=== PATIENT | female | born 1990 | race Caucasian/White ===

== ENCOUNTER 2016-10-06 17:53 | Emergency (ER) | payer OTHER ==
[2016-10-06 17:56] VITALS: BP 127/78; PULSE 69; TEMP 98; BMI 33.3
== END 2016-10-06 19:19 | disposition left against medical advice (07) ==
LOC: JER 17:53
DX: Z53.21 Procedure and treatment not carried out due to patient leaving prior to being seen by health care provider (principal)
CPT/HCPCS: 99281-25

== ENCOUNTER 2017-01-07 08:11 | Inpatient (IN) | payer OTHER ==
--- NOTE | 2017-01-07 13:07 | HP ---
Admission [facility] Chief Complaint: REHAB TX FOR PCP DEPENDENCE Allergies/Adverse Reactions: Allergies Allergy/AdvReac Type Severity Reaction Status Date / Time No Known Drug Allergies Allergy Verified 01/07/17 11:34 shellfish derived Allergy Itching Verified 01/07/17 11:34 History of Present Illness: 26 Y/O H/FEMALE WITH A HX OF PCP DEPENENCE SEEKING REHAB TX. PT IS CURRENTLY IN [facility] OPD Exam Limitations: No Limitations - Ebola screening Have you traveled outside of the country in the last 21 days: No Have you had contact with anyone from an Ebola affected area: No - Review of Systems Constitutional: No Symptoms Reported EENT: reports: Dental Problems (MISSING TEETH) Respiratory: reports: Shortness of Breath (HX ASTHMA), Wheezing Cardiac: reports: No Symptoms Reported GI: reports: Poor Fluid Intake : reports: No Symptoms Reported Musculoskeletal: reports: No Symptoms Reported Integumentary: reports: Rash (HX ECZEMA ON/OFF BUT CLEARED AT THE MOMENT PER PT) Neuro: reports: No Symptoms reported Endocrine: reports: No Symptoms Reported Hematology: reports: No Symptoms Reported Psychiatric: reports: Orientated x3, Anxious Other Systems: Reviewed and Negative Patient History - Patient Medical History Hx Anemia: No Hx Asthma: Yes (ON ALBUTEROL) Hx Chronic Obstructive Pulmonary Disease (COPD): No Hx Cancer: No Hx Cardiac Disorders: No Hx Congestive Heart Failure: No Hx Hypertension: No Hx Hypercholesterolemia: No Hx Pacemaker: No HX Cerebrovascular Accident: No Hx Seizures: No Hx Dementia: No Hx Diabetes: No Hx Gastrointestinal Disorders: No Hx Liver Disease: No Hx Genitourinary Disorders: No Hx Sexually Transmitted Disorders: Yes (GONORRHEA; GENITAL HERPES) Hx Renal Disease (ESRD): No Hx Thyroid Disease: No Hx Human Immunodeficiency Virus (HIV): No (NEGATIVE HX) Hx Hepatitis C: No Hx Depression: Yes (ON MEDS) Hx Suicide Attempt: Yes (CUT WRIST;OD ON PSYCH MEDS-LAST WEEK. DENIES CURRENT IDEATIONS.) Hx Bipolar Disorder: Yes Hx Schizophrenia: No - Patient Surgical History Past Surgical History: Yes Hx Neurologic Surgery: No Hx Cataract Extraction: No Hx Cardiac Surgery: No Hx Lung Surgery: No Hx Breast Surgery: No Hx Breast Biopsy: No Hx Abdominal Surgery: No Hx Appendectomy: No Hx Cholecystectomy: No Hx Genitourinary Surgery: No Hx Section: Yes (X 1 IN 2009) Hx Orthopedic Surgery: No Hx Hysterectomy: No Anesthesia Reaction: No - PPD History Previous Implant?: Yes Documented Results: Negative w/proof Date: 05/01/16 PPD to be Administered?: No - Reproductive History Patient is a Female of Child Bearing Age (11 -55 yrs old): Yes Last Menstrual Period: 05/01/16 Patient : No - Smoking Cessation Smoking history: Current every day smoker Have you smoked in the past 12 months: Yes Aproximately how many cigarettes per day: 20 Hx Chewing Tobacco Use: No Initiated information on smoking cessation: Yes 'Breaking Loose' booklet given: 01/07/17 - Substance & Tx. History Hx Alcohol Use: No (DENIES) Hx Substance Use: Yes (PCP) Hx Substance Use Treatment: Yes ([facility]) - Substances Abused PCP Route: Smoking Frequency: Daily Amount used: 3 BAGS Age of first use: 14 Date of Last Use: 01/06/17 Family Disease History - Family Disease History Family Disease History: Heart Disease: Mother (COPD), CA: Mother, Respiratory: Mother, Other: Grandparent (GM-LEG AMPUTATION) Admission Physical Exam S - Physical General Appearance: Yes: No Apparent Distress, Irritable, Anxious HEENTM: Yes: EOMI, Normocephalic, JAMILA, Pharynx Normal Respiratory: Yes: Chest Non-Tender, Lungs Clear, Normal Breath Sounds, No Respiratory Distress Breast: Yes: Breast Exam Deferred Cardiology: Yes: Regular Rhythm, Regular Rate, S1, S2 Abdominal: Yes: Normal Bowel Sounds, Non Tender, Soft Genitourinary: Yes: Other (N/C) Back: Yes: Within Normal Limits Musculoskeletal: Yes: full range of Motion, Gait Steady Extremities: Yes: Normal Range of Motion, Non-Tender Neurological: Yes: optical element coater II-XII NML intact, Fully Oriented, Alert, Motor Strength 5/5 Integumentary: Yes: Dry, Warm Lymphatic: Yes: Within Normal Limits - Diagnostic (1) Asthma Current Visit: Yes Status: Chronic Qualifiers: Asthma severity: mild intermittent Asthma complication type: with status asthmaticus Qualified Code(s): J45.22 - Mild intermittent asthma with status asthmaticus (2) Cannabis dependence Current Visit: No Status: Inactive (3) Herpes simplex type II infection Current Visit: Yes Status: Inactive (4) Nicotine dependence Current Visit: Yes Status: Acute Qualifiers: Nicotine product type: cigarettes Substance use status: in withdrawal Qualified Code(s): F17.213 - Nicotine dependence, cigarettes, with withdrawal (5) PCP dependence Current Visit: Yes Status: Acute Cleared for Admission [facility] - Detox or Rehab Claeared for Rehab Admission: Yes [facility] Breath Alcohol Content Breath Alcohol Content: 0
[2017-01-07] MEDS ORDERED: MAG HYDROX/AL HYDROX/SIMETH 30 ML UNIT-DOSE CUP PO PRN (13:33)
[2017-01-07] MEDS ORDERED: hydrOXYzine PAMOATE 25 MG CAPSULE (FP) PO PRN (13:33)
[2017-01-07] MEDS ORDERED: P-EPHED 60MG/TRIPROLIDI 2.5MG TABLET PO PRN (13:33)
[2017-01-07] MEDS ORDERED: MENTHOL/PHENOL 1 EACH UD MM PRN (13:33)
[2017-01-07] MEDS ORDERED: guaiFENesin/D-METHORPHAN HB 10 ML UNIT-DOSE CUPS PO PRN (13:33)
[2017-01-07] MEDS ORDERED: MAGNESIUM CITRATE 300 ML BOTTLE PO PRN (13:33)
[2017-01-07] MEDS ORDERED: LOPERAMIDE HCL 2 MG CAPSULE PO PRN (13:33)
[2017-01-07] MEDS ORDERED: diphenhydrAMINE HCL 50 MG CAPSULE PO PRN (13:33)
[2017-01-07] MEDS ORDERED: ACETAMINOPHEN 325 MG TABLET (FP) PO PRN (13:33)
[2017-01-07] MEDS ORDERED: MAGNESIUM HYDROX 2400MG/30ML ORAL SUSPENSION 30 ML CUP PO PRN (13:33)
[2017-01-07] MEDS ORDERED: IBUPROFEN 400 MG TABLET (FP) PO PRN (13:33)
[2017-01-07] MEDS ORDERED: COLLOIDAL OATMEAL 1 BAR EACH TP PRN (13:35)
[2017-01-07] MEDS: NICOTINE 21 MG/24 HOURS TOPICAL PATCH TD SCH (15:11)
[2017-01-07] MEDS: NICOTINE POLACRILEX 4 MG GUM BUC PRN (15:11)
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
[2017-01-07 18:00] LABS: MCH 29.1 pg (25.7-33.7); MCHC 32.4 g/dl (32.0-36.0); MEAN CELL VOLUME 89.8 fl (80-96); MEAN PLT VOLUME 10.3 fl (7.5-11.1); PLATELET COUNT 176 K/MM3 (134-434); RDW 14.1 % (11.6-15.6); WHITE BLOOD COUNT 10.1 K/mm3 (4.0-10.0)
[2017-01-07 18:10] LABS: URINE APPEARANCE CLEAR; URINE BILIRUBIN NEGATIVE (NEGATIVE); URINE BLOOD NEGATIVE (NEGATIVE); URINE COLOR YELLOW; URINE GLUCOSE (UA) NEGATIVE (NEGATIVE); URINE KETONE TRACE (NEGATIVE); URINE LEUK ESTERASE NEGATIVE (NEGATIVE); URINE NITRITE NEGATIVE (NEGATIVE); URINE PROTEIN NEGATIVE (NEGATIVE); URINE UROBILINOGEN NEGATIVE E.U./dl (0.2-1.0)
[2017-01-07 18:14] LABS: CALCIUM 8.9 mg/dL (8.5-10.1)
[2017-01-07 18:19] LABS: ALBUMIN 3.8 g/dl (3.4-5.0); ALK PHOS 81 U/L (45-117); ANION GAP 10 (8-16); BILIRUBIN,TOTAL 0.2 mg/dL (0.2-1.0); CO2 29 mmol/L (21-32); COCKROFT - GAULT 147.3645; CREATININE 0.7 mg/dL (0.55-1.02); GLUCOSE,RANDOM 103 mg/dL (74-106); SGOT/AST 10 U/L (15-37); SGPT/ALT 17 U/L (12-78); TOT PROT 6.7 g/dl (6.4-8.2)
[2017-01-07 20:41] LABS: SICKLE CELL SCREEN NEGATIVE (NEGATIVE)
[2017-01-07] MEDS: traZODone HCL 100 MG TABLET (FP) PO SCH (21:28)
[2017-01-07] MEDS: OLANZapine 10 MG TABLET PO SCH (21:28)
[2017-01-07] MEDS: THIAMINE HCL 100 MG TABLET (FP) PO SCH (21:28)
[2017-01-07] MEDS: hydrOXYzine PAMOATE 50 MG CAPSULE (FP) PO SCH (21:28)
[2017-01-07] MEDS: OXcarbazepine 300 MG TABLET (UD) PO SCH (21:28)
[2017-01-08] MEDS: hydrOXYzine PAMOATE 50 MG CAPSULE (FP) PO SCH ×3 (06:28→21:24)
[2017-01-08] MEDS: PRENATAL VITAMINS W/ FOLIC ACID TABLET (FP) PO SCH (10:31)
[2017-01-08] MEDS: OXcarbazepine 300 MG TABLET (UD) PO SCH ×2 (10:31→21:24)
[2017-01-08] MEDS: NICOTINE POLACRILEX 4 MG GUM BUC PRN (10:32)
[2017-01-08] MEDS: NICOTINE 21 MG/24 HOURS TOPICAL PATCH TD SCH (10:32)
--- NOTE | 2017-01-08 13:36 | EKG ---
Test Reason : Blood Pressure : / mmHG Vent. Rate : 070 BPM Atrial Rate : 070 BPM P-R Int : 154 ms QRS Dur : 086 ms QT Int : 404 ms P-R-T Axes : 052 088 080 degrees QTc Int : 436 ms NORMAL SINUS RHYTHM NONSPECIFIC T WAVE ABNORMALITY ABNORMAL ECG WHEN COMPARED WITH ECG OF 25-JUL-2015 20:18, NONSPECIFIC T WAVE ABNORMALITY NOW EVIDENT IN ANTEROLATERAL LEADS Confirmed by BARBARA MOLINA, TERESE ([id number]) on 01/08/2017 1:36:14 PM Referred By: Nivia Berry Confirmed By:TERESE JIMENEZ MD
[2017-01-08] MEDS: COLLOIDAL OATMEAL 1 BAR EACH TP PRN (15:57)
[2017-01-08] MEDS ORDERED: PT OWN MED DRAWER 7, Y5N ONE (19:33)
[2017-01-08] MEDS: traZODone HCL 100 MG TABLET (FP) PO SCH (21:24)
[2017-01-08] MEDS: OLANZapine 10 MG TABLET PO SCH (21:24)
[2017-01-08] MEDS: THIAMINE HCL 100 MG TABLET (FP) PO SCH (21:24)
[2017-01-09] MEDS: hydrOXYzine PAMOATE 50 MG CAPSULE (FP) PO SCH ×3 (06:10→21:28)
[2017-01-09] MEDS ORDERED: PT OWN MED DRAWER 7, Y5N ONE (08:56)
[2017-01-09] MEDS: PRENATAL VITAMINS W/ FOLIC ACID TABLET (FP) PO SCH (10:13)
[2017-01-09] MEDS: NICOTINE 21 MG/24 HOURS TOPICAL PATCH TD SCH (10:13)
[2017-01-09] MEDS: OXcarbazepine 300 MG TABLET (UD) PO SCH ×2 (10:13→21:28)
[2017-01-09] MEDS: NICOTINE POLACRILEX 4 MG GUM BUC PRN (10:15)
[2017-01-09] MEDS: THIAMINE HCL 100 MG TABLET (FP) PO SCH (21:28)
[2017-01-09] MEDS: OLANZapine 10 MG TABLET PO SCH (21:28)
[2017-01-09] MEDS: traZODone HCL 100 MG TABLET (FP) PO SCH (21:28)
[2017-01-10] MEDS: hydrOXYzine PAMOATE 50 MG CAPSULE (FP) PO SCH ×3 (06:25→21:26)
[2017-01-10] MEDS: NICOTINE 21 MG/24 HOURS TOPICAL PATCH TD SCH (10:03)
[2017-01-10] MEDS: OXcarbazepine 300 MG TABLET (UD) PO SCH ×2 (10:03→21:26)
[2017-01-10] MEDS: PRENATAL VITAMINS W/ FOLIC ACID TABLET (FP) PO SCH (10:03)
[2017-01-10] MEDS: NICOTINE POLACRILEX 4 MG GUM BUC PRN (10:04)
[2017-01-10] MEDS: THIAMINE HCL 100 MG TABLET (FP) PO SCH (21:26)
[2017-01-10] MEDS: OLANZapine 10 MG TABLET PO SCH (21:26)
[2017-01-10] MEDS: traZODone HCL 100 MG TABLET (FP) PO SCH (21:26)
[2017-01-11] MEDS: hydrOXYzine PAMOATE 50 MG CAPSULE (FP) PO SCH ×3 (06:12→21:27)
[2017-01-11] MEDS: NICOTINE POLACRILEX 4 MG GUM BUC PRN (10:08)
[2017-01-11] MEDS: PRENATAL VITAMINS W/ FOLIC ACID TABLET (FP) PO SCH (10:08)
[2017-01-11] MEDS: NICOTINE 21 MG/24 HOURS TOPICAL PATCH TD SCH (10:08)
[2017-01-11] MEDS: OXcarbazepine 300 MG TABLET (UD) PO SCH ×2 (10:08→21:29)
[2017-01-11] MEDS: traZODone HCL 100 MG TABLET (FP) PO SCH (21:27)
[2017-01-11] MEDS: THIAMINE HCL 100 MG TABLET (FP) PO SCH (21:28)
[2017-01-11] MEDS: OLANZapine 10 MG TABLET PO SCH (21:29)
[2017-01-12] MEDS: hydrOXYzine PAMOATE 50 MG CAPSULE (FP) PO SCH (06:11)
[2017-01-12] MEDS: NICOTINE 21 MG/24 HOURS TOPICAL PATCH TD SCH (10:12)
[2017-01-12] MEDS: PRENATAL VITAMINS W/ FOLIC ACID TABLET (FP) PO SCH (10:12)
[2017-01-12] MEDS: OXcarbazepine 300 MG TABLET (UD) PO SCH ×2 (10:12→21:16)
--- NOTE | 2017-01-12 15:41 | PN ---
S Progress Note Note: Pt. had bacterial vaginosis,but did not complete flagyl. Pt. is c/o vaginal d/c with a fishy odor. P : Flagyl 500mg po bid x 7 days
[2017-01-12] MEDS: HYDROCORTISONE 1% TOPICAL CREAM 30 GM TUBE TP SCH ×2 (18:20→21:19)
[2017-01-12] MEDS: OLANZapine 10 MG TABLET PO SCH (21:16)
[2017-01-12] MEDS: traZODone HCL 100 MG TABLET (FP) PO SCH (21:16)
[2017-01-12] MEDS: THIAMINE HCL 100 MG TABLET (FP) PO SCH (21:16)
[2017-01-12] MEDS: metroNIDAZOLE 250 MG TABLET PO SCH (21:18)
[2017-01-12] MEDS: hydrOXYzine PAMOATE 50 MG CAPSULE (FP) PO PRN (21:18)
[2017-01-13] MEDS ORDERED: PT OWN MED DRAWER 7, Y5N ONE (08:30)
[2017-01-13] MEDS: OXcarbazepine 300 MG TABLET (UD) PO SCH ×2 (09:55→21:23)
[2017-01-13] MEDS: PRENATAL VITAMINS W/ FOLIC ACID TABLET (FP) PO SCH (09:55)
[2017-01-13] MEDS: HYDROCORTISONE 1% TOPICAL CREAM 30 GM TUBE TP SCH ×2 (09:55→13:09)
[2017-01-13] MEDS: metroNIDAZOLE 250 MG TABLET PO SCH ×2 (09:55→21:23)
[2017-01-13] MEDS: NICOTINE 21 MG/24 HOURS TOPICAL PATCH TD SCH (09:56)
[2017-01-13] MEDS: THIAMINE HCL 100 MG TABLET (FP) PO SCH (21:23)
[2017-01-13] MEDS: OLANZapine 10 MG TABLET PO SCH (21:23)
[2017-01-13] MEDS: traZODone HCL 100 MG TABLET (FP) PO SCH (21:24)
[2017-01-13] MEDS: hydrOXYzine PAMOATE 50 MG CAPSULE (FP) PO PRN (21:27)
[2017-01-14] MEDS: metroNIDAZOLE 250 MG TABLET PO SCH ×2 (10:04→21:18)
[2017-01-14] MEDS: PRENATAL VITAMINS W/ FOLIC ACID TABLET (FP) PO SCH (10:04)
[2017-01-14] MEDS: OXcarbazepine 300 MG TABLET (UD) PO SCH ×2 (10:04→21:18)
[2017-01-14] MEDS: NICOTINE 21 MG/24 HOURS TOPICAL PATCH TD SCH (10:05)
[2017-01-14] MEDS: OLANZapine 10 MG TABLET PO SCH (21:18)
[2017-01-14] MEDS: traZODone HCL 100 MG TABLET (FP) PO SCH (21:18)
[2017-01-14] MEDS: hydrOXYzine PAMOATE 50 MG CAPSULE (FP) PO PRN (21:18)
[2017-01-14] MEDS: THIAMINE HCL 100 MG TABLET (FP) PO SCH (21:45)
[2017-01-15] MEDS: OXcarbazepine 300 MG TABLET (UD) PO SCH ×2 (09:53→21:24)
[2017-01-15] MEDS: metroNIDAZOLE 250 MG TABLET PO SCH ×2 (09:53→21:24)
[2017-01-15] MEDS: NICOTINE 21 MG/24 HOURS TOPICAL PATCH TD SCH (09:53)
[2017-01-15] MEDS: PRENATAL VITAMINS W/ FOLIC ACID TABLET (FP) PO SCH (09:53)
[2017-01-15] MEDS: NICOTINE POLACRILEX 4 MG GUM BUC PRN (09:55)
[2017-01-15] MEDS: COLLOIDAL OATMEAL 1 BAR EACH TP PRN (12:52)
[2017-01-15] MEDS: OLANZapine 10 MG TABLET PO SCH (21:24)
[2017-01-15] MEDS: THIAMINE HCL 100 MG TABLET (FP) PO SCH (21:24)
[2017-01-15] MEDS: traZODone HCL 100 MG TABLET (FP) PO SCH (21:24)
[2017-01-15] MEDS: hydrOXYzine PAMOATE 50 MG CAPSULE (FP) PO PRN (21:26)
[2017-01-16] MEDS: OXcarbazepine 300 MG TABLET (UD) PO SCH ×2 (09:56→21:24)
[2017-01-16] MEDS: PRENATAL VITAMINS W/ FOLIC ACID TABLET (FP) PO SCH (09:56)
[2017-01-16] MEDS: metroNIDAZOLE 250 MG TABLET PO SCH ×2 (09:56→21:24)
[2017-01-16] MEDS: NICOTINE 21 MG/24 HOURS TOPICAL PATCH TD SCH (09:57)
[2017-01-16] MEDS: NICOTINE POLACRILEX 4 MG GUM BUC PRN (09:57)
[2017-01-16] MEDS: HYDROCORTISONE 1% TOPICAL CREAM 30 GM TUBE TP PRN (09:59)
[2017-01-16] MEDS ORDERED: PT OWN MED DRAWER 7, Y5N ONE (10:00)
[2017-01-16] MEDS: hydrOXYzine PAMOATE 50 MG CAPSULE (FP) PO PRN (21:23)
[2017-01-16] MEDS: traZODone HCL 100 MG TABLET (FP) PO SCH (21:23)
[2017-01-16] MEDS: OLANZapine 10 MG TABLET PO SCH (21:24)
[2017-01-16] MEDS: THIAMINE HCL 100 MG TABLET (FP) PO SCH (21:24)
[2017-01-17] MEDS: metroNIDAZOLE 250 MG TABLET PO SCH ×2 (09:47→21:08)
[2017-01-17] MEDS: OXcarbazepine 300 MG TABLET (UD) PO SCH ×2 (09:48→21:08)
[2017-01-17] MEDS: NICOTINE 21 MG/24 HOURS TOPICAL PATCH TD SCH (09:48)
[2017-01-17] MEDS: PRENATAL VITAMINS W/ FOLIC ACID TABLET (FP) PO SCH (09:48)
[2017-01-17] MEDS: NICOTINE POLACRILEX 4 MG GUM BUC PRN (09:49)
[2017-01-17] MEDS: OLANZapine 10 MG TABLET PO SCH (21:08)
[2017-01-17] MEDS: THIAMINE HCL 100 MG TABLET (FP) PO SCH (21:08)
[2017-01-17] MEDS: hydrOXYzine PAMOATE 50 MG CAPSULE (FP) PO PRN (21:08)
[2017-01-17] MEDS: traZODone HCL 100 MG TABLET (FP) PO SCH (21:08)
[2017-01-18] MEDS: metroNIDAZOLE 250 MG TABLET PO SCH ×2 (09:58→21:15)
[2017-01-18] MEDS: PRENATAL VITAMINS W/ FOLIC ACID TABLET (FP) PO SCH (09:59)
[2017-01-18] MEDS: OXcarbazepine 300 MG TABLET (UD) PO SCH ×2 (09:59→21:15)
[2017-01-18] MEDS: NICOTINE POLACRILEX 4 MG GUM BUC PRN ×2 (09:59→17:44)
[2017-01-18] MEDS: NICOTINE 21 MG/24 HOURS TOPICAL PATCH TD SCH (09:59)
[2017-01-18] MEDS ORDERED: traZODone HCL 50 MG TABLET (FP) ONE (20:46)
[2017-01-18] MEDS: OLANZapine 10 MG TABLET PO SCH (21:15)
[2017-01-18] MEDS: hydrOXYzine PAMOATE 50 MG CAPSULE (FP) PO PRN (21:15)
[2017-01-18] MEDS: THIAMINE HCL 100 MG TABLET (FP) PO SCH (21:16)
[2017-01-18] MEDS: traZODone HCL 100 MG TABLET (FP) PO SCH (21:17)
[2017-01-18] MEDS ORDERED: PT OWN MED DRAWER 7, Y5N ONE (21:18)
[2017-01-18] MEDS: HYDROCORTISONE 1% TOPICAL CREAM 30 GM TUBE TP PRN (21:19)
[2017-01-19] MEDS: OXcarbazepine 300 MG TABLET (UD) PO SCH ×2 (10:04→21:14)
[2017-01-19] MEDS: PRENATAL VITAMINS W/ FOLIC ACID TABLET (FP) PO SCH (10:04)
[2017-01-19] MEDS: metroNIDAZOLE 250 MG TABLET PO SCH ×2 (10:04→21:14)
[2017-01-19] MEDS: NICOTINE POLACRILEX 4 MG GUM BUC PRN ×3 (10:06→18:07)
[2017-01-19] MEDS: NICOTINE 21 MG/24 HOURS TOPICAL PATCH TD SCH (10:06)
[2017-01-19] MEDS: traZODone HCL 100 MG TABLET (FP) PO SCH (21:14)
[2017-01-19] MEDS: OLANZapine 10 MG TABLET PO SCH (21:14)
[2017-01-19] MEDS: hydrOXYzine PAMOATE 50 MG CAPSULE (FP) PO PRN (21:14)
[2017-01-19] MEDS: THIAMINE HCL 100 MG TABLET (FP) PO SCH (21:14)
[2017-01-19] MEDS ORDERED: PT OWN MED DRAWER 7, Y5N ONE (21:16)
[2017-01-20] MEDS: OXcarbazepine 300 MG TABLET (UD) PO SCH ×2 (10:03→21:34)
[2017-01-20] MEDS: NICOTINE POLACRILEX 4 MG GUM BUC PRN (10:03)
[2017-01-20] MEDS: PRENATAL VITAMINS W/ FOLIC ACID TABLET (FP) PO SCH (10:03)
[2017-01-20] MEDS: NICOTINE 21 MG/24 HOURS TOPICAL PATCH TD SCH (10:03)
[2017-01-20] MEDS: THIAMINE HCL 100 MG TABLET (FP) PO SCH (21:34)
[2017-01-20] MEDS: traZODone HCL 100 MG TABLET (FP) PO SCH (21:34)
[2017-01-20] MEDS: OLANZapine 10 MG TABLET PO SCH (21:34)
[2017-01-20] MEDS: hydrOXYzine PAMOATE 50 MG CAPSULE (FP) PO PRN (21:34)
[2017-01-21 07:23] VITALS: BP 108/70; PULSE 67; TEMP 97.9
--- NOTE | 2017-01-21 09:00 | PN ---
Psychiatric Progress Note Vital Signs: Vital Signs Period Temp Pulse Resp BP Sys/Navarro Pulse Ox Last 24 Hr 97.9 F 67 18-18 108/70 Date of Session: 01/21/17 Chief Complaint:: Discharge visit HPI: Patient addressed PCP dependence comorbid with Bipolar disorder,Bordeline personality. ROS: Significant for PCP,Exsema,BA,HErpez simplex. Current Medications: Active Medications Generic Name Dose Route Start Last Admin Trade Name Freq PRN Reason Stop Dose Admin Acetaminophen 650 mg 01/07/17 13:33 01/20/17 13:39 Tylenol - PO 650 mg Q4H PRN Administration PAIN Al Hydroxide/Mg Hydroxide 30 ml 01/07/17 13:33 Mylanta Oral Suspension - PO Q6H PRN DYSPEPSIA Colloidal Oatmeal 1 applic 01/08/17 14:23 01/15/17 12:52 Aveeno Soap - TP 1 applic DAILY PRN Administration HYGEINE Diphenhydramine HCl 50 mg 01/07/17 13:33 Benadryl - PO HSMR1 PRN INSOMNIA Eucalyptus/Menthol/Phenol/Sorbitol 1 each 01/07/17 13:33 Cepastat Lozenge - MM Q4H PRN SORE THROAT Guaifenesin 10 ml 01/07/17 13:33 Robitussin Dm - PO Q6H PRN COUGH Hydrocortisone 1 applic 01/13/17 14:49 01/18/17 21:19 Hytone 1% Cream - TP 1 applic QID PRN Administration FOR ITCHING Hydroxyzine Pamoate 50 mg 01/12/17 10:17 01/20/17 21:34 Vistaril - PO 50 mg Q6H PRN Administration ANXIETY Ibuprofen 400 mg 01/07/17 13:33 Motrin - PO Q6H PRN SEVERE PAIN Loperamide HCl 4 mg 01/07/17 13:33 Imodium - PO Q6H PRN DIARRHEA Magnesium Citrate 300 ml 01/07/17 13:33 Citroma - PO Q48H PRN CONSTIPATION Magnesium Hydroxide 30 ml 01/07/17 13:33 Milk Of Magnesia - PO DAILY PRN CONSTIPATION Nicotine 21 mg 01/07/17 14:27 01/20/17 10:03 Nicoderm Patch - TD Not Given DAILY ANGELITO Nicotine Polacrilex 4 mg 01/07/17 13:33 01/20/17 10:03 Nicorette Gum - BUC 4 mg Q2H PRN Administration NICOTINE REPLACEMENT RX Olanzapine 20 mg 01/07/17 22:00 01/20/17 21:34 Zyprexa - PO 20 mg HS ANGELITO Administration Oxcarbazepine 300 mg 01/07/17 22:00 01/20/17 21:34 Trileptal - PO 300 mg BID ANGELITO Administration Multivit/Folic Acid/Iron 1 tab 01/08/17 10:00 01/20/17 10:03 Vitamins (Sjr) - PO 1 tab DAILY ANGELITO Administration Pseudoephedrine/Triprolidine 1 combo 01/07/17 13:33 Actifed - PO TID PRN NASAL CONGESTION Thiamine HCl 100 mg 01/07/17 22:00 01/20/17 21:34 Vitamin B1 - PO 100 mg HS ANGELITO Administration Trazodone HCl 100 mg 01/07/17 22:00 01/20/17 21:34 Desyrel - PO 100 mg HS ANGELITO Administration Current Side Effect: No Lab tests ordered: No Lab tests reviewed: Yes Provider note:: Patient completed this program today.She has met her treatment goals and will continue to address her issues on outpatient basis at [facility].Patient continues to find that current medications help to reduce her anxiety,mood instability and sleeping difficulties.She will continue to take her medications as per plan,30 days supply provided. Relapse prevention has been discussed with the patient including support system,coping skills utilization to maintain recovery. Patient is stable for discharge today. Mental Status Exam - Mental Status Exam Alert and Oriented to: Time, Place, Person Cognitive Function: Grossly Intact Patient Appearance: Well Groomed Mood: Hopeful, Euthymic Affect: Mood Congruent Patient Behavior: Cooperative Speech Pattern: Clear Voice Loudness: Normal Thought Process: Goal Oriented Thought Disorder: Being Controlled Hallucinations: Denies Suicidal Ideation: Denies Homicidal Ideation: Denies Insight/Judgement: Fair Sleep: Fair Appetite: Good Muscle strength/Tone: Normal Gait/Station: Normal Psychiatric Treatment Plan - Problem List (1) Nicotine dependence Qualifiers: Nicotine product type: cigarettes Substance use status: in withdrawal Qualified Code(s): F17.213 - Nicotine dependence, cigarettes, with withdrawal (3) Asthma Qualifiers: Asthma severity: mild intermittent Asthma complication type: with status asthmaticus Qualified Code(s): J45.22 - Mild intermittent asthma with status asthmaticus
[2017-01-21] MEDS: OXcarbazepine 300 MG TABLET (UD) PO SCH (09:03)
[2017-01-21] MEDS: PRENATAL VITAMINS W/ FOLIC ACID TABLET (FP) PO SCH (09:03)
[2017-01-21] MEDS: NICOTINE POLACRILEX 4 MG GUM BUC PRN (09:04)
[2017-01-21] MEDS: NICOTINE 21 MG/24 HOURS TOPICAL PATCH TD SCH (09:04)
== END 2017-01-21 09:06 | disposition home or self-care (01) | DRG 772 ==
LOC: YASAS 08:11 → Y3E 12:26
PROVIDERS: ADMIT Psychiatry & Neurology Psychiatry; ATTEND Psychiatry & Neurology Psychiatry
PROC: HZ42ZZZ Group Counseling for Substance Abuse Treatment, Cognitive-Behavioral (ICD-10-PCS; principal; 2017-01-07)
DX: F16.20 Hallucinogen dependence, uncomplicated (principal); F17.213 Nicotine dependence, cigarettes, with withdrawal; F31.89 Other bipolar disorder; J45.22 Mild intermittent asthma with status asthmaticus; B00.9 Herpesviral infection, unspecified; Z87.42 Personal history of other diseases of the female genital tract; Z91.5 Personal history of self-harm
CPT/HCPCS: 36415; 80053; 81003; 85027; 85660; 86593; 93005; 93010

== ENCOUNTER → 2017-09-09 | Day surgery (SDC) | payer OTHER | END | disposition home or self-care (01) | LOC: JRADIR 09:25 | PROVIDERS: ATTEND Obstetrics & Gynecology | PROC: BU12YZZ Fluoroscopy of Bilateral Fallopian Tubes using Other Contrast (ICD-10-PCS; principal; 2017-09-09) | DX: N97.9 Female infertility, unspecified (principal) | CPT/HCPCS: 36415; 58340; 74740-TC; 76000-TC; 84702; Q9967 ==

== ENCOUNTER 2017-09-13 08:44 | Emergency (ER) | payer OTHER ==
[2017-09-13 08:54] VITALS: BP 127/85; PULSE 88; TEMP 97.3; BMI 32.9
--- NOTE | 2017-09-13 09:42 | PDOC ---
History of Present Illness <Jacqueline Ballesteros - Last Filed: 09/13/17 09:38> - General History Source: Patient Exam Limitations: No Limitations - History of Present Illness Initial Comments: 09/13/17 09:47 The patient is a 27 year old female, with a significant past medical history of asthma and bipolar disorder, who presents to the emergency department s/p vaginal procedure (09/09/17) with post surgical dysfunctional vaginal bleeding since. The patient reports going through about 5 pads per day. She reports having clotting in her blood at first, but has since resolved. She also arrives with complaints of lower abdominal pain which she describes as diffuse cramping across her lower abdomen. She denies recent fevers, chills, headache or dizziness. She denies recent nausea, vomit, diarrhea or constipation. She denies recent dysuria, frequency, urgency or hematuria. She denies recent chest pain or shortness of breath. Allergies: NKA Past surgical history: None reported. Social history: Nonsmoker. Denies EtOH use and recreational drug use. Primary Care Physician: <Quan Hall - Last Filed: 09/13/17 09:48> - General Chief Complaint: Vaginal Bleeding Stated Complaint: POST-SURG/ BLEEDING Time Seen by Provider: 09/13/17 09:10 Past History - Past Medical History Anemia: No Asthma: Yes Cancer: No Cardiac Disorders: No CVA: No COPD: No CHF: No Dementia: No Diabetes: No GI Disorders: No Disorders: No HTN: No Hypercholesterolemia: No Kidney Stones: No Liver Disease: No Psychiatric Problems: Yes (BIPOLAR , ANXIETY, BORDERLINE PERSONALITY) Seizures: No Thyroid Disease: No - Surgical History Abdominal Surgery: No Appendectomy: No Cardiac Surgery: No Cholecystectomy: No Lung Surgery: No Neurologic Surgery: No Orthopedic Surgery: No - Reproductive History (#): 1 Para: 1 Cervical CA: No Dysfunctional Uterine Bleeding: No Ectopic : No Endometrial CA: No PID: No Polycystic Ovaries: No Tubal Ligation: No Spontaneous : 0 - Immunization History Immunization Up to Date: Yes - Suicide/Smoking/Psychosocial Hx Smoking History: Never smoked Have you smoked in the past 12 months: Yes Number of Cigarettes Smoked Daily: 20 'Breaking Loose' booklet given: 01/07/17 Hx Alcohol Use: Yes (SOCIAL) Drug/Substance Use Hx: No Substance Use Type: None Hx Substance Use Treatment: Yes (reorts only 7 months of adbsinence (longest)) <FavianJacqueline - Last Filed: 09/13/17 09:38> <Quan Hall - Last Filed: 09/13/17 09:48> - Past Medical History Allergies/Adverse Reactions: Allergies Allergy/AdvReac Type Severity Reaction Status Date / Time No Known Drug Allergies Allergy Verified 09/13/17 08:48 shellfish derived Allergy Itching Verified 09/13/17 08:48 Home Medications: Ambulatory Orders Olanzapine [Zyprexa -] 20 mg PO DAILY 04/29/16 Oxcarbazepine [Trileptal -] 300 mg PO BID 01/07/17 Trazodone HCl [Desyrel -] 100 mg PO HS 01/07/17 Hydroxyzine Pamoate [Vistaril -] 50 mg PO Q6H PRN #90 cap 01/21/17 Hydroxyzine Pamoate [Vistaril -] 50 mg PO TID 30 Days cap 01/21/17 Olanzapine [ZyPREXA -] 20 mg PO HS #60 tablet 01/21/17 Oxcarbazepine [Trileptal -] 300 mg PO BID #60 tablet 01/21/17 Trazodone HCl [Desyrel -] 100 mg PO HS #30 tablet 01/21/17 Review of Systems - Review of Systems Able to Perform ROS?: Yes Comments:: 09/13/17 09:47 GENERAL/CONSTITUTIONAL: No fever or chills. No weakness. HEAD, EYES, EARS, NOSE AND THROAT: No change in vision. No ear pain or discharge. No sore throat. CARDIOVASCULAR: No chest pain or shortness of breath. RESPIRATORY: No cough, wheezing, or hemoptysis. GASTROINTESTINAL: +vaginal bleeding. +lower abd pain. No nausea, vomiting, diarrhea or constipation. GENITOURINARY: No dysuria, frequency, or change in urination. MUSCULOSKELETAL: No joint or muscle swelling or pain. No neck or back pain. SKIN: No rash NEUROLOGIC: No headache, vertigo, loss of consciousness, or change in strength/ sensation. ENDOCRINE: No increased thirst. No abnormal weight change. HEMATOLOGIC/LYMPHATIC: No anemia, easy bleeding, or history of blood clots. ALLERGIC/IMMUNOLOGIC: No hives or skin allergy. <Quan Hall - Last Filed: 09/13/17 09:48> *Physical Exam - Vital Signs Last Vital Signs Temp Pulse Resp BP Pulse Ox 97.3 F L 88 20 127/85 97 09/13/17 08:45 09/13/17 08:45 09/13/17 08:45 09/13/17 08:45 09/13/17 08:45 <Jacqueline Ballesteros - Last Filed: 09/13/17 09:38> - Vital Signs Last Vital Signs Temp Pulse Resp BP Pulse Ox 97.3 F L 88 20 127/85 97 09/13/17 08:45 09/13/17 08:45 09/13/17 08:45 09/13/17 08:45 09/13/17 08:45 - Physical Exam Comments: 09/13/17 09:47 GENERAL: Awake, alert, and fully oriented, in no acute distress HEAD: No signs of trauma EYES: PERRLA, EOMI, sclera anicteric, conjunctiva clear ENT: Auricles normal inspection, hearing grossly normal, nares patent, oropharynx clear without exudates. Moist mucosa NECK: Normal ROM, supple, no lymphadenopathy, JVD, or masses LUNGS: Breath sounds equal, clear to auscultation bilaterally. No wheezes, and no crackles HEART: Regular rate and rhythm, normal S1 and S2, no murmurs, rubs or gallops ABDOMEN: Soft, nontender, normoactive bowel sounds. No guarding, no rebound. No masses PELVIC: Small amount of blood in the vaginal vault. Minimal bleeding from the cervix. No clots. No surgical or vaginal laceration. Os is closed. EXTREMITIES: Normal range of motion, no edema. No clubbing or cyanosis. No cords, erythema, or tenderness NEUROLOGICAL: Cranial nerves II through XII grossly intact. Normal speech, normal gait SKIN: Warm, Dry, normal turgor, no rashes or lesions noted. <Quan Hall - Last Filed: 09/13/17 09:48> Medical Decision Making - Medical Decision Making 09/13/17 09:38 Pt presents to the ED complaining of light to moderate vaginal bleeding (4-5 pads/day) after hysterosalpingogram performed on 09/09/2017. Also complaining of some crampy pelvic pain. No signs of heavy bleeding or trauma on pelvic exam. Patient reports that bleeding is decreasing and has follow up on Thursday. Will discharge home with instructions to tell her physician on Thursday if the bleeding has not stopped. <Jacqueline Ballesteros - Last Filed: 09/13/17 09:38> *DC/Admit/Observation/Transfer - Discharge Dispostion Admit: No <Jacqueline Ballesteros - Last Filed: 09/13/17 09:38> - Attestations Scribe Attestion: 09/13/17 09:48 Documentation prepared by Quan Hall, acting as manager medical for Jacqueline Ballesteros MD. <Quan Hall - Last Filed: 09/13/17 09:48> Diagnosis at time of Disposition: Vaginal bleeding - Discharge Dispostion Disposition: HOME Condition at time of disposition: Good - Referrals Referrals: German Alvarado MD [Primary Care Provider] - - Patient Instructions Printed Discharge Instructions: DI for Vaginal Bleeding Additional Instructions: return to the ED for worsening bleeding, soaking one pad front to back in an hour, severe abdominal pain, pain with fever, foul smelling vaginal discharge, other new or worsening symptoms. - Post Discharge Activity
== END 2017-09-13 09:48 | disposition home or self-care (01) ==
LOC: JER 08:44
DX: N93.8 Other specified abnormal uterine and vaginal bleeding (principal); Z98.890 Other specified postprocedural states; N99.820 Postprocedural hemorrhage of a genitourinary system organ or structure following a genitourinary system procedure
CPT/HCPCS: 99282-25

== ENCOUNTER 2017-09-23 11:36 | Emergency (ER) | payer OTHER ==
[2017-09-23 12:12] VITALS: BP 144/91; PULSE 99; TEMP 98.2; BMI 31.8
--- NOTE | 2017-09-23 12:22 | PDOC ---
History of Present Illness - General Chief Complaint: Substance Abuse Stated Complaint: DRUG ABUSE Time Seen by Provider: 09/23/17 12:02 History Source: Patient Exam Limitations: No Limitations - History of Present Illness Initial Comments: 09/23/17 12:10 Patient is a 27-year-old female with history of bipolar disorder was brought in by ambulance because a bystander states patient was acting "intoxicated" in a public area. Upon arrival, patient is refusing to be evaluated. States "I'm fine" is just concerned that she may be . She denies any chest pain or SOB. No N/V/D. No urinary pain or bleeding. No vaginal complaint. Denies any alcohol or illegal drug use. Denies taking any medication that is not prescribed and is taking correct dosages. Allergies: Shellfish Medications: [See medication list] Family History: Non-contributory Social History: Denies smoking, alcohol use, or IVDU Review of Systems GENERAL/CONSTITUTIONAL: [No fever or chills. No weakness. No weight change.] HEAD, EYES, EARS, NOSE AND THROAT: [No change in vision. No ear pain or discharge. No sore throat. ] CARDIOVASCULAR: [No chest pain or shortness of breath.] RESPIRATORY: [No cough, wheezing, or hemoptysis.] GASTROINTESTINAL: [No nausea, vomiting, diarrhea or constipation. No rectal bleeding. Irregular period] GENITOURINARY: [No dysuria, frequency, or change in urination.] MUSCULOSKELETAL: [No joint or muscle swelling or pain. No neck or back pain.] SKIN AND BREASTS: [No rash or easy bruising.] NEUROLOGIC: [No headache, vertigo, loss of consciousness, or loss of sensation.] PSYCHIATRIC: [No depression or anxiety.] ENDOCRINE: [No increased thirst. No abnormal weight change.] HEMATOLOGIC/LYMPHATIC: [No anemia, easy bleeding, or history of blood clots.] ALLERGIC/IMMUNOLOGIC: [No hives or skin allergy. No latex allergy.] Physical Exam: GENERAL: [The patient is awake, alert, and fully oriented, in no acute distress. ] HEAD: [Normal with no signs of trauma.] EYES: [Pupils equal, pupils equal pinpoint, extraocular movements intact, sclera anicteric, conjunctiva clear.] ENT: [Ears normal, nares patent, oropharynx clear without exudates. Moist mucous membranes. No uvula deviation] NECK: [Normal range of motion, supple without lymphadenopathy, JVD, or masses.] LUNGS: [Breath sounds equal, clear to auscultation bilaterally. No wheezes, and no crackles.] HEART: [Regular rate and rhythm, normal S1 and S2 without murmur, rub or gallop. ] ABDOMEN: [Soft, nontender, normoactive bowel sounds. No guarding, no rebound. No masses. No bruising or abrasions] MUSCULOSKELETAL: [Normal range of motion, no edema. No clubbing or cyanosis. No cords, erythema, or tenderness. No CVA Tenderness with fist.] NEUROLOGICAL: [Cranial nerves II through XII grossly intact. Normal speech, normal gait.] SKIN: [Warm, Dry, normal turgor, no rashes or lesions noted.] Past History - Past Medical History Allergies/Adverse Reactions: Allergies Allergy/AdvReac Type Severity Reaction Status Date / Time No Known Drug Allergies Allergy Verified 09/23/17 12:08 shellfish derived Allergy Itching Verified 09/23/17 12:08 Home Medications: Ambulatory Orders Oxcarbazepine [Trileptal -] 300 mg PO BID 01/07/17 Hydroxyzine Pamoate [Vistaril -] 50 mg PO TID 30 Days cap 01/21/17 Olanzapine [ZyPREXA -] 20 mg PO HS #60 tablet 01/21/17 Trazodone HCl [Desyrel -] 100 mg PO HS #30 tablet 01/21/17 Anemia: No Asthma: Yes Cancer: No Cardiac Disorders: No CVA: No COPD: No CHF: No Dementia: No Diabetes: No GI Disorders: No Disorders: No HTN: No Hypercholesterolemia: No Kidney Stones: No Liver Disease: No Psychiatric Problems: Yes (BIPOLAR) Seizures: No Thyroid Disease: No - Surgical History Abdominal Surgery: No Appendectomy: No Cardiac Surgery: No Cholecystectomy: No Lung Surgery: No Neurologic Surgery: No Orthopedic Surgery: No - Reproductive History (#): 1 Para: 1 Cervical CA: No Dysfunctional Uterine Bleeding: No Ectopic : No Endometrial CA: No PID: No Polycystic Ovaries: No Tubal Ligation: No Spontaneous : 0 - Immunization History Immunization Up to Date: Yes - Suicide/Smoking/Psychosocial Hx Smoking History: Current every day smoker Have you smoked in the past 12 months: Yes Number of Cigarettes Smoked Daily: 20 'Breaking Loose' booklet given: 01/07/17 Hx Alcohol Use: Yes (socially on and off) Drug/Substance Use Hx: Yes (reports started PCP since 14 yo,3 bags daily, reports binges) Substance Use Type: None Hx Substance Use Treatment: Yes (reorts only 7 months of adbsinence (longest)) Medical Decision Making - Medical Decision Making A/P: Patient here for evaluation, was picked up by EMS, a bystander saw patient acting abnormal. Upon arrival patient was able to answer questions. Laboratory Results - last 24 hr 09/23/17 09/23/17 12:20 12:20 Urine Color Ltyellow Urine Appearance Clear Urine pH 7.0 Ur Specific [place] 1.009 Urine Protein Negative Urine Glucose (UA) Negative Urine Ketones Negative Urine Blood 1+ H Urine Nitrite Negative Urine Bilirubin Negative Urine Urobilinogen Negative Ur Leukocyte Esterase Negative Urine HCG, Qual Negative Opiates Screen Negative Methadone Screen Negative Barbiturate Screen Negative Phencyclidine Screen Positive Ur Amphetamines Screen Negative MDMA (Ecstasy) Screen Negative Benzodiazepines Screen Negative Cocaine Screen Negative U Marijuana (THC) Screen Negative 09/23/17 13:09 09/23/17 13:15 Patient noted with positive phencyclidine. After further questioning patient admits to using yesterday. She was able to eat and drink without difficulty. Ambulating without difficulty. I spoke to the patients mother who reports that she has a history of dust use and was seen at [facility] yesterday for the same. Has been in and out of rehab. Mother is attempting to get patient in rehab now. Labs reviewed with patient she is positive for PCP and patient verbalized that she last used yesterday. She is awake and alert, urine is negative, I will DC patient home under care of mother. To follow-up outpatient detox. I discussed the physical exam findings, ancillary test results and final diagnoses with the patient. I answered all of the patient's questions. The patient was satisfied with the care received and felt comfortable with the discharge plan and treatment plan. The patient will call to arrange follow-up and will return to the Emergency Department with any new, persistent or worsening symptoms. *DC/Admit/Observation/Transfer Diagnosis at time of Disposition: PCP dependence - Discharge Dispostion Disposition: HOME Condition at time of disposition: Stable Admit: No - Referrals Referrals: [facility] [Provider Group] - Patient Instructions Additional Instructions: Follow up with PMD for evaluation. recommend rehab. - Post Discharge Activity
[2017-09-23 12:51] LABS: HCG,QUALITATIVE URINE NEGATIVE; URINE APPEARANCE CLEAR; URINE BILIRUBIN NEGATIVE (NEGATIVE); URINE BLOOD 1+ (NEGATIVE); URINE COLOR LTYELLOW; URINE GLUCOSE (UA) NEGATIVE (NEGATIVE); URINE KETONE NEGATIVE (NEGATIVE); URINE LEUK ESTERASE NEGATIVE (NEGATIVE); URINE NITRITE NEGATIVE (NEGATIVE); URINE PROTEIN NEGATIVE (NEGATIVE); URINE UROBILINOGEN NEGATIVE mg/dL (0.2-1.0)
[2017-09-23 12:56] LABS: COCAINE, UR NEGATIVE ng/ml (CUTOFF=300); METHADONE, UR NEGATIVE ng/ml (CUTOFF=300); OPIATES, URI NEGATIVE ng/ml (CUTOFF=300); PHENCYCLIDINE,URINE POSITIVE ng/ml (CUTOFF=25); URINE AMPHETAMINES NEGATIVE ng/ml (CUTOFF=500); URINE BARBITURATES NEGATIVE ng/ml (CUTOFF=200); URINE BENZODIAZEPINES NEGATIVE ng/ml (CUTOFF=200)
[2017-09-23 13:56] LABS: EPI CELLS RARE /HPF (FEW); URINE BACTERIA RARE /hpf (NONE SEEN)
== END 2017-09-23 13:26 | disposition home or self-care (01) ==
LOC: JER 11:36
DX: F15.20 Other stimulant dependence, uncomplicated (principal); F31.9 Bipolar disorder, unspecified
CPT/HCPCS: 80307; 81003; 81015; 84703; 99282-25

== ENCOUNTER 2018-01-25 11:08 | Emergency (ER) | payer OTHER ==
--- NOTE | 2018-01-25 12:13 | PDOC ---
History of Present Illness - General Chief Complaint: Alcohol intoxication Stated Complaint: Alcohol intoxication - History of Present Illness Initial Comments: 01/25/18 12:11 27 yo F with h/o PCP abuse, EtoH abuse, Nicotine dependence, asthma, bipolar type I disorder who arrives from rehab facility for evaluation. Patient was believed to be inebriated /Etoh intox d/t report of hypersomnolence, but she denies alcohol intake. She reports 1 week of abdominal pain (unable to characterize), nausea without vomiting, and chest discomfort.Denies identifiable triggers or alleviators. Denies head/neck/back trauma, fall, LOC, SI/HI. Denies F/C, CP, SOB, diarrhea, constipation, urinary complaints, weakness, lightheadedness, sensory changes. PMHx: as noted above SHx: reports PCP use for 13 years. Denies Etoh use. Daily tobacco use. ROS: as noted above. Past History - Past Medical History Allergies/Adverse Reactions: Allergies Allergy/AdvReac Type Severity Reaction Status Date / Time No Known Drug Allergies Allergy Verified 01/25/18 12:36 shellfish derived Allergy Itching Verified 01/25/18 12:36 Home Medications: Ambulatory Orders Oxcarbazepine [Trileptal -] 300 mg PO BID 01/07/17 Olanzapine [ZyPREXA -] 20 mg PO HS #60 tablet 01/21/17 hydrOXYzine PAMOATE [Vistaril -] 50 mg PO TID 30 Days cap 01/21/17 traZODone HCL [Desyrel -] 100 mg PO HS #30 tablet 01/21/17 Anemia: No Asthma: Yes Cancer: No Cardiac Disorders: No CVA: No COPD: No CHF: No Dementia: No Diabetes: No GI Disorders: No Disorders: No HTN: No Hypercholesterolemia: No Kidney Stones: No Liver Disease: No Psychiatric Problems: Yes (BIPOLAR) Seizures: No Thyroid Disease: No - Surgical History Abdominal Surgery: No Appendectomy: No Cardiac Surgery: No Cholecystectomy: No Lung Surgery: No Neurologic Surgery: No Orthopedic Surgery: No - Reproductive History (#): 1 Para: 1 Cervical CA: No Dysfunctional Uterine Bleeding: No Ectopic : No Endometrial CA: No PID: No Polycystic Ovaries: No Tubal Ligation: No Spontaneous : 0 - Immunization History Immunization Up to Date: Yes - Suicide/Smoking/Psychosocial Hx Smoking History: Current every day smoker Have you smoked in the past 12 months: Yes Number of Cigarettes Smoked Daily: 20 'Breaking Loose' booklet given: 01/07/17 Hx Alcohol Use: Yes (socially on and off) Drug/Substance Use Hx: Yes (reports started PCP since 14 yo,3 bags daily, reports binges) Substance Use Type: None Hx Substance Use Treatment: Yes (reorts only 7 months of adbsinence (longest)) Review of Systems - Review of Systems Comments:: 01/25/18 12:11 GENERAL/CONSTITUTIONAL: No fever or chills. No weakness. HEAD, EYES, EARS, NOSE AND THROAT: No change in vision. No ear pain or discharge. No sore throat. CARDIOVASCULAR: No chest pain or shortness of breath RESPIRATORY: No cough, wheezing, or hemoptysis. GASTROINTESTINAL: + abdominal pain and nausea. No vomiting, diarrhea or constipation. GENITOURINARY: No dysuria, frequency, or change in urination. MUSCULOSKELETAL: No joint or muscle swelling or pain. No neck or back pain. SKIN: No rash NEUROLOGIC: No headache, vertigo, loss of consciousness, or change in strength/ sensation. ENDOCRINE: No increased thirst. No abnormal weight change HEMATOLOGIC/LYMPHATIC: No anemia, easy bleeding, or history of blood clots. ALLERGIC/IMMUNOLOGIC: No hives or skin allergy. *Physical Exam - Physical Exam Comments: 01/25/18 12:11 GENERAL: Awake,oriented to person, date,and place, in no acute distress. Somonolent on exam, but arousable and answering questions. HEAD: No signs of trauma, normocephalic, atraumatic EYES: PERRLA, EOMI, sclera anicteric, conjunctiva clear ENT: Auricles normal inspection, hearing grossly normal, nares patent, oropharynx clear without exudates. Moist mucosa NECK: Normal ROM, supple, no lymphadenopathy, JVD, or masses LUNGS: No distress, speaks full sentences, clear to auscultation bilaterally HEART: Regular rate and rhythm, normal S1 and S2, no murmurs, rubs or gallops, peripheral pulses normal and equal bilaterally. ABDOMEN: Soft, nontender, normoactive bowel sounds. No guarding, no rebound. No masses EXTREMITIES : Normal inspection, Normal range of motion, no edema. No clubbing or cyanosis. NEUROLOGICAL: Cranial nerves II through XII grossly intact. Normal speech, no focal sensorimotor deficits Psych:Denies SI/HI. Absent hallucinations or delusions. SKIN: Warm, Dry, normal turgor, no rashes or lesions noted ED Treatment Course - LABORATORY CBC & Chemistry Diagram: 01/25/18 13:00 01/25/18 13:00 Medical Decision Making - Medical Decision Making 01/25/18 13:27 27 yo F with h/o PCP abuse, EtoH abuse, Nicotine dependence, asthma, bipolar type I disorder who arrives from rehab facility (PCP use) for medical evaluation after found to be somnolent by staff. Patient suspected EtoH intox, but denies alcohol use, and is somewhat somnolent on exam, but arousable, responsive, and answering questions appropriately. Patient reports undescriptive abdominal pain with unremarkable abdominal exam. Will assess for electrolyte abnml, toxic and metabolic derangements, acid-base disturbances. Attempt to medically clear and d/c back to rehab. ED Course: CBC, CMP, Urine Tox, Serum HCG EKG 01/25/18 14:54 CBC, CMP: Unremarkable Sreum Preg: Neg Patient seen ambulating around ED. Upon revaluation of patient (around 15:00) she was not there. She is not in ED. 01/25/18 15:56 Left message on [employer] home phone [phone] 01/25/18 17:04 Left message on [employer] advising her to come to ED, and call back *DC/Admit/Observation/Transfer Diagnosis at time of Disposition: Altered mental status Qualifiers: Altered mental status type: unspecified Qualified Code(s): R41.82 - Altered mental status, unspecified - Discharge Dispostion Disposition: ELOPED Condition at time of disposition: Unchanged/Unknown - Referrals Referrals: German Alvarado MD [Primary Care Provider] - - Patient Instructions Additional Instructions: Please return to the emergency department with any new or worsening symptoms or concerns. Please follow up with your primary care physician within 72 hours. - Post Discharge Activity - Attestations Physician Attestion: 01/25/18 12:12 I attest to the information provided in this note.
[2018-01-25 12:37] VITALS: BP 141/90; PULSE 78; TEMP 97.8; BMI 31.1
[2018-01-25 13:08] LABS: BASO % 0.5 % (0-2.0); EOS % 1.6 % (0-4.5); HEMATOCRIT 41.2 % (32.4-45.2); HEMOGLOBIN 13.6 GM/dL (10.7-15.3); LYMPH % 34.9 % (8-40); MCHC 33.1 g/dl (32.0-36.0); MEAN CELL VOLUME 87.7 fl (80-96); MONO % 7.2 % (3.8-10.2); NEUT % 55.8 % (42.8-82.8); PLATELET COUNT 191 K/MM3 (134-434); RDW 13.6 % (11.6-15.6); WHITE BLOOD COUNT 8.1 K/mm3 (4.0-10.0)
[2018-01-25 13:29] LABS: ALBUMIN 3.9 g/dl (3.4-5.0); ALK PHOS 63 U/L (45-117); ANION GAP 7 (8-16); BILIRUBIN,TOTAL 0.2 mg/dL (0.2-1.0); BLOOD UREA NITROGEN 10 mg/dL (7-18); CALCIUM 8.7 mg/dL (8.5-10.1); CHLORIDE 111 mmol/L (98-107); CO2 27 mmol/L (21-32); CREATININE 0.6 mg/dL (0.55-1.02); GLUCOSE,RANDOM 90 mg/dL (74-106); POTASSIUM 4.2 mmol/L (3.5-5.1); SGOT/AST 19 U/L (15-37); SGPT/ALT 21 U/L (12-78); SODIUM 145 mmol/L (136-145); TOT PROT 6.9 g/dl (6.4-8.2)
--- NOTE | 2018-01-25 15:13 | PDOC ---
History of Present Illness - General Chief Complaint: Alcohol intoxication Stated Complaint: Alcohol intoxication Time Seen by Provider: 01/25/18 12:10 Past History - Past Medical History Allergies/Adverse Reactions: Allergies Allergy/AdvReac Type Severity Reaction Status Date / Time No Known Drug Allergies Allergy Verified 01/25/18 12:36 shellfish derived Allergy Itching Verified 01/25/18 12:36 Home Medications: Ambulatory Orders Oxcarbazepine [Trileptal -] 300 mg PO BID 01/07/17 Olanzapine [ZyPREXA -] 20 mg PO HS #60 tablet 01/21/17 hydrOXYzine PAMOATE [Vistaril -] 50 mg PO TID 30 Days cap 01/21/17 traZODone HCL [Desyrel -] 100 mg PO HS #30 tablet 01/21/17 Anemia: No Asthma: Yes Cancer: No Cardiac Disorders: No CVA: No COPD: No CHF: No Dementia: No Diabetes: No GI Disorders: No Disorders: No HTN: No Hypercholesterolemia: No Kidney Stones: No Liver Disease: No Psychiatric Problems: Yes (BIPOLAR) Seizures: No Thyroid Disease: No - Surgical History Abdominal Surgery: No Appendectomy: No Cardiac Surgery: No Cholecystectomy: No Lung Surgery: No Neurologic Surgery: No Orthopedic Surgery: No - Reproductive History (#): 1 Para: 1 Cervical CA: No Dysfunctional Uterine Bleeding: No Ectopic : No Endometrial CA: No PID: No Polycystic Ovaries: No Tubal Ligation: No Spontaneous : 0 - Immunization History Immunization Up to Date: Yes - Suicide/Smoking/Psychosocial Hx Smoking History: Current every day smoker Have you smoked in the past 12 months: Yes Number of Cigarettes Smoked Daily: 20 Information on smoking cessation initiated: No 'Breaking Loose' booklet given: 01/07/17 Hx Alcohol Use: Yes (socially on and off) Drug/Substance Use Hx: Yes (reports started PCP since 14 yo,3 bags daily, reports binges) Substance Use Type: None Hx Substance Use Treatment: Yes (reorts only 7 months of adbsinence (longest)) *Physical Exam - Vital Signs Last Vital Signs Temp Pulse Resp BP Pulse Ox 97.8 F 78 18 141/90 100 01/25/18 11:08 01/25/18 11:08 01/25/18 11:08 01/25/18 11:08 01/25/18 11:08 ED Treatment Course - LABORATORY CBC & Chemistry Diagram: 01/25/18 13:00 01/25/18 13:00 - ADDITIONAL ORDERS Additional order review: Laboratory Results 01/25/18 01/25/18 13:00 12:50 Sodium 145 Potassium 4.2 Chloride 111 H Carbon Dioxide 27 Anion Gap 7 L BUN 10 Creatinine 0.6 Creat Clearance w eGFR > 60 Random Glucose 90 Calcium 8.7 Total Bilirubin 0.2 AST 19 ALT 21 Alkaline Phosphatase 63 Total Protein 6.9 Albumin 3.9 Serum , Qual Negative 01/25/18 13:00 RBC 4.70 MCV 87.7 MCHC 33.1 RDW 13.6 MPV 10.0 Neutrophils % 55.8 Lymphocytes % 34.9 Monocytes % 7.2 Eosinophils % 1.6 Basophils % 0.5 *DC/Admit/Observation/Transfer Diagnosis at time of Disposition: Altered mental status Qualifiers: Altered mental status type: unspecified Qualified Code(s): R41.82 - Altered mental status, unspecified - Discharge Dispostion Disposition: ELOPED - Referrals Referrals: German Alvarado MD [Primary Care Provider] - - Patient Instructions Additional Instructions: Please return to the emergency department with any new or worsening symptoms or concerns. Please follow up with your primary care physician within 72 hours. - Post Discharge Activity
--- NOTE | 2018-01-25 15:20 | PDOC ---
Attending Attestation - Resident Resident Name: RogelioKiranXavier - ED Attending Attestation I have performed the following: I have examined & evaluated the patient, The case was reviewed & discussed with the resident, I agree w/resident's findings & plan, Exceptions are as noted - HPI HPI: 01/25/18 15:16 27 years old past medical history significant for polysubstance abuse bipolar disorder since the emergency department from [facility] for evaluation patient presented to [facility] was found to be sleeping thought to be under the influence and sent to ED for further management. Upon arrival to the emergency department patient is sleepy but arousable answering questions states that she was sent here because of a cough and some diffuse abdominal discomfort. States cough is persistent constant she is an active smoker. Denies suicidal ideation or homicidal ideation. - Physicial Exam PE: 01/25/18 15:17 Vitals: Triage Vital signs reviewed General Appearance: no acute distress, well nourished well developed, Head: Atraumatic, Eyes: Pupils equal reactive round, extraocular movement intact Neck: Supple;No Nucal rigidity Chest Wall: Nontender Cardiac: Regular rate and rhythym, no murmurs, no rubs, no gallops, Lungs: Clear to auscultation bilateral, good air movement bilaterally, Abdomen: Soft, non distended, normal bowel sounds, non tender to palpation Extremities: Full range of motion to all extremities, no cyanosis, clubbing, or edema Skin: Warm and dry, no rashes or lesions, no rash, no petechiae Neuro: Cranial Nerves 2-12 grossly intact, Strength intact to all extremities, Sensation intact to all extremities,gait normal Psych: normal mood, normal affect, sleepy - Medical Decision Making 01/25/18 15:17 Well-appearing no apparent distress patient sleepy but arousable stable vital signs answer questions appropriately no suicidal ideation or homicidal ideation. We'll check labs urine frag observe reassess chest x-ray Reevaluation 3 PM patient was seen ambulating with steady gait around the emergency department after being in the ED for approximately 3 hours. It appears that the patient has eloped from the emergency department. I have made 3 phone calls to try to reach the patient at home with no answer
== END 2018-01-25 15:00 | disposition left against medical advice (07) ==
LOC: JER 11:08
DX: R41.82 Altered mental status, unspecified (principal); F10.10 Alcohol abuse, uncomplicated; F16.10 Hallucinogen abuse, uncomplicated; F31.89 Other bipolar disorder; F17.210 Nicotine dependence, cigarettes, uncomplicated; J45.909 Unspecified asthma, uncomplicated
CPT/HCPCS: 36415; 80053; 84703; 85025; 99282-25

== ENCOUNTER 2018-04-04 10:31 | Emergency (ER) | payer OTHER ==
--- NOTE | 2018-04-04 10:44 | PDOC ---
History of Present Illness - General Stated Complaint: NAUSEA/VOMITING Time Seen by Provider: 04/04/18 10:40 - History of Present Illness Initial Comments: 27yo F with PMH of polysubstance abuse and borderline personality disorder with chief complaint of nausea/vomiting. Patient believes her nausea is related to morning sickness. She went to [facility] emergency department a couple days ago and found out she was . One previous in 2009 in which her daughter was born . Denies vaginal bleeding, contractions, or discharge. No fever, chills, chest pain, shortness of breath, or abdominal pain. LMP is unknown, but may be about two months ago. Patient endorses PCP use a couple days ago. Patient does not currently endorse nausea or vomiting and says "I'd like to know how far along I am". 04/04/18 11:18 Past History - Past Medical History Allergies/Adverse Reactions: Allergies Allergy/AdvReac Type Severity Reaction Status Date / Time No Known Drug Allergies Allergy Verified 04/04/18 10:50 shellfish derived Allergy Itching Verified 04/04/18 10:50 Home Medications: Ambulatory Orders Oxcarbazepine [Trileptal -] 300 mg PO BID 01/07/17 Olanzapine [ZyPREXA -] 20 mg PO HS #60 tablet 01/21/17 hydrOXYzine PAMOATE [Vistaril -] 50 mg PO Q4H PRN #120 capsule 03/11/18 traZODone HCL [Desyrel -] 100 mg PO HS #30 tablet 03/11/18 Ondansetron HCl [Zofran] 4 mg PO PRN PRN #10 tablet 04/04/18 Anemia: No Asthma: Yes Cancer: No Cardiac Disorders: No CVA: No COPD: No CHF: No Dementia: No Diabetes: No GI Disorders: No Disorders: No HTN: No Hypercholesterolemia: No Kidney Stones: No Liver Disease: No Psychiatric Problems: Yes (BIPOLAR) Seizures: No Thyroid Disease: No - Surgical History Abdominal Surgery: No Appendectomy: No Cardiac Surgery: No Cholecystectomy: No Lung Surgery: No Neurologic Surgery: No Orthopedic Surgery: No - Reproductive History (#): 1 Para: 1 Cervical CA: No Dysfunctional Uterine Bleeding: No Ectopic : No Endometrial CA: No PID: Yes (01/12/2018) Polycystic Ovaries: No Tubal Ligation: No Spontaneous : 0 - Immunization History Immunization Up to Date: Yes - Suicide/Smoking/Psychosocial Hx Smoking History: Current every day smoker Have you smoked in the past 12 months: Yes Number of Cigarettes Smoked Daily: 20 'Breaking Loose' booklet given: 02/26/18 Hx Alcohol Use: Yes (socially on and off) Drug/Substance Use Hx: Yes (PCP since 14 yo,3 bags daily,reports binges on/off) Substance Use Type: None Hx Substance Use Treatment: Yes (comleted this program in December 2017) Review of Systems - Review of Systems Comments:: Constitutional: no fever, no chills HEENT: no throat pain, no vision changes Cardiovascular: no chest pain, no palpitations Respiratory: no cough, no shortness of breath Gastrointestinal: +nausea, +vomiting, no abdominal pain, , no diarrhea, no constipation Genitourinary: no dysuria, no frequency Musculoskeletal: no myalgia, no arthralgia Skin: no rash, no itching Neurologic: no headache, no dizziness *Physical Exam - Physical Exam Comments: General: Awake, alert, and fully oriented, in no acute distress Head: no signs of trauma Eyes: EOMI, sclera anicteric ENT: moist mucus membranes, Neck: Normal ROM, supple, no lymphadenopathy, JVD, or masses Lungs: Lungs clear, Normal breath sounds Cardio: Regular rhythm, S1 and S2 present, no murmurs, rubs, or gallops Abdomen: Soft, nontender, normal bowel sounds. No guarding, no rebound Extremities: Normal range of motion, No cyanosis SKIN: Warm, Dry, normal turgor, no rashes or lesions noted Neurologic: Cranial nerves II through XII grossly intact. Normal speech Medical Decision Making - Medical Decision Making 27yo F patient. Not endorsing nausea, vomiting, or other symptoms at this time. Dr. Lane spoke with [facility] ED. Patient's B-hcg level was in the 300s a couple days ago 04/04/18 12:31 B-hcg today is 750, which indicates appropriate increase from 315 on 04/02/18 at [facility]. Awaiting ultrasound report. 04/04/18 13:32 Ultrasound could not confirm that this is an intrauterine . "IMPRESSION: No evidence of intrauterine gestational sac. Probable corpus lutein cyst left ovary but further evaluation recommended. Recommend clinical correlation. Correlation with beta-hCGs and follow-up sonography as clinically warranted." Explained to patient that the that the ultrasound may be too early to confirm IUP vs. ectopic pregancy. Patient does not currently have a insurance case manager. Further follow-up with insurance case manager needed will refer to Dr. Jacobs. Strong return precautions given. 04/04/18 15:15 *DC/Admit/Observation/Transfer Diagnosis at time of Disposition: Qualifiers: Weeks of gestation: less than 8 weeks Qualified Code(s): Z3A.01 - Less than 8 weeks gestation of - Discharge Dispostion Disposition: HOME Condition at time of disposition: Stable - Prescriptions Prescriptions: Ondansetron HCl [Zofran] 4 mg PO PRN PRN #10 tablet PRN Reason: Nausea - Referrals Referrals: German Alvarado MD [Primary Care Provider] - Josafat Jacobs MD [Staff Physician] - - Patient Instructions Additional Instructions: You were seen in the Emergency Department for nausea/vomiting. You can take Zofran as needed for your nausea. This medicine was sent to your pharmacy. Your beta-hcg level indicates you are about 2-3 weeks . This level increased from two days ago. 04/04/18: beta-hcg of 751 ([facility]) 04/02/18: beta-hcg of 315 ([facility] The ultrasound today could not confirm that this is an intrauterine . You need further follow-up with an Promotions Director physician to establish care and make sure this is not an ectopic . We are referring you to Dr. Jacobs. Please follow-up with this doctor in the next 2-3 days. You need to call and set up an appointment. JOSAFAT JACOBS MD [facility] [place] [address] Return to the Emergency Department if you have: heavy bleeding (more than two pads per hour for two hours), severe pain, lightheadedness, shortness of breath , high fever, or any other concerning symptoms. - Post Discharge Activity
[2018-04-04 11:11] VITALS: BP 117/70; PULSE 67; TEMP 98.3; BMI 30.1
--- NOTE | 2018-04-04 11:34 | PDOC ---
Attending Attestation - Resident Resident Name: Evelin Doty - ED Attending Attestation I have performed the following: I have examined & evaluated the patient, The case was reviewed & discussed with the resident, I agree w/resident's findings & plan, Exceptions are as noted - HPI HPI: 04/04/18 11:31 27y F hx of substance abuse, A1 presents with nausea and vomiting for the past few days. Pt states she is not currently nauseas currently states she was diagnosed with at [facility] recently but was kicked out and wants to know how far along she is. Pt denies any abd pain, vag bleeding, dsyuria, fever/ chills, back pain, cp, sob. On exam pt is well appearing in no distress abd soft nontender no cva tendneress no le edema discussed with [facility] - pt was last seen there on 04/02, had a TVUS showing at hickened endometrial stripe without a gestational sac, Beta was 315 will recheck a beta and TVUS pt nto currently nauseus and has no complaints will defer antiemetic
== END 2018-04-04 15:20 | disposition home or self-care (01) ==
LOC: JER 10:31
DX: Z32.01 Encounter for pregnancy test, result positive (principal); Z3A.01 Less than 8 weeks gestation of pregnancy; F60.3 Borderline personality disorder; F31.9 Bipolar disorder, unspecified; F17.210 Nicotine dependence, cigarettes, uncomplicated
CPT/HCPCS: 36415; 76801-TC; 84702; 99282-25

== ENCOUNTER 2018-06-15 18:29 | Emergency (ER) | payer OTHER ==
[2018-06-15 18:36] VITALS: BMI 31.1
--- NOTE | 2018-06-15 18:39 | PDOC ---
History of Present Illness - General Chief Complaint: Weakness Stated Complaint: NEAR SYNCOPE, POSSIBLE DRUG USE, 4 MONTHS PREG - History of Present Illness Initial Comments: 06/15/18 18:37 Patient is female at a self reported 20 weeks gestation with a PMH of HSV and Asthma (no intubations, no hospitalizations) who was BIBEMS after being found confused and alert at a [employer] bus stop. Patient states she smoked "dust " earlier today which she later identifies as PCP. EMS reports As per companions at bus stop patient has a h/o smoking K2. ROS is positive for diarrhea (NB) today. Patient states she follows with Dr. Clemons @ [facility] and she was last evaluated 3 weeks previous but cannot provide details of her . Denies active drug use, states she came to the hospital for her diarrhea, notes she had 10+ episodes of non-bloody, watery diarrhea today. Denies associated fevers/chills, abdominal pain. HPI and ROS limited 2/2 to patient's clinical condition, drowsy but responsive. VS stable Allergy: shellfish Surgical: C/S Social: 2 cigarettes daily, daily PCP, denies alcohol PMD: Dr. German Alvarado M.D. OB-Locksmith Helper: Dr. Kaci Blake Past History - Past Medical History Allergies/Adverse Reactions: Allergies Allergy/AdvReac Type Severity Reaction Status Date / Time No Known Drug Allergies Allergy Verified 04/04/18 10:50 shellfish derived Allergy Itching Verified 06/15/18 18:35 Home Medications: Ambulatory Orders Oxcarbazepine [Trileptal -] 300 mg PO BID 01/07/17 Olanzapine [ZyPREXA -] 20 mg PO HS #60 tablet 01/21/17 hydrOXYzine PAMOATE [Vistaril -] 50 mg PO Q4H PRN #120 capsule 03/11/18 traZODone HCL [Desyrel -] 100 mg PO HS #30 tablet 03/11/18 Ondansetron HCl [Zofran] 4 mg PO PRN PRN #10 tablet 04/04/18 Anemia: No Asthma: Yes Cancer: No Cardiac Disorders: No CVA: No COPD: No CHF: No DVT: No Dementia: No Diabetes: No GI Disorders: No Disorders: No HTN: No Hypercholesterolemia: No Kidney Stones: No Liver Disease: No Psychiatric Problems: Yes (BIPOLAR) Seizures: No Thyroid Disease: No Other medical history: genital herpes - Surgical History Abdominal Surgery: No Appendectomy: No Cardiac Surgery: No Cholecystectomy: No Lung Surgery: No Neurologic Surgery: No Orthopedic Surgery: No - Reproductive History (#): 1 Para: 1 Cervical CA: No Dysfunctional Uterine Bleeding: No Ectopic : No Endometrial CA: No PID: Yes (01/12/2018) Polycystic Ovaries: No Tubal Ligation: No Spontaneous : 0 - Immunization History Immunization Up to Date: Yes - Suicide/Smoking/Psychosocial Hx Smoking History: Current every day smoker Have you smoked in the past 12 months: Yes Number of Cigarettes Smoked Daily: 20 Information on smoking cessation initiated: Yes 'Breaking Loose' booklet given: 06/15/18 Hx Alcohol Use: (denies) Drug/Substance Use Hx: (denies) Substance Use Type: None Hx Substance Use Treatment: Yes (comleted this program in December 2017) Review of Systems - Review of Systems Constitutional: No: Chills, Fever HEENTM: No: Blurred Vision, Double Vision Respiratory: No: Cough, Shortness of Breath Cardiac (ROS): No: Chest Pain, Lightheadedness, Palpitations, Syncope ABD/GI: Yes: Diarrhea. No: Constipated, Nausea, Vomiting : No: Burning, Dysuria *Physical Exam - Vital Signs Last Vital Signs Temp Pulse Resp BP Pulse Ox 98.4 F 70 16 111/56 L 100 06/15/18 18:33 06/15/18 18:33 06/15/18 18:33 06/15/18 18:33 06/15/18 18:33 - Physical Exam General Appearance: Yes: Nourished, Appropriately Dressed, Other (drowsy, responds to sternal rub) HEENT: positive: EOMI, JAMILA, Normal Voice, Hearing Grossly Normal, Other ( Sluggish pupils B/L) Neck: positive: Trachea midline, Supple Respiratory/Chest: positive: Lungs Clear, Normal Breath Sounds. negative: Labored Respiration, Rapid RR, Crackles, Wheezing Cardiovascular: positive: S1, S2. negative: Edema, JVD, Murmur Gastrointestinal/Abdominal: positive: Soft, Rebound. negative: Guarding, Tenderness, Hernia, Mass Musculoskeletal: negative: CVA Tenderness (R), CVA Tenderness (L) Extremity: positive: Normal Capillary Refill, Normal Inspection Integumentary: positive: Normal Color, Dry, Warm Neurologic: positive: material expeditor II-XII NML intact, Alert, Respond to painful stimul ED Treatment Course - LABORATORY CBC & Chemistry Diagram: 06/15/18 18:41 06/15/18 18:37 Medical Decision Making - Medical Decision Making 06/15/18 19:03 28 year old female presents with possible unknown drug ingestion. Noted to have h/o K2 use. Afebrile w/ other VS stable. Drowsy but alert. Admits to PCP use. Gravid at presentation - states she is @ 20 weeks and has care. No gestational data in EMR, patient's fundus above umbilicus. Will monitor VS, Urine tox, ECG, basic labs. Will also obtain UA, Type and Screen and TVUS as uncertain of gestational age/ care. 06/15/18 19:09 EKG shows NSR HR 72, T wave flattening in precordial leads V2-V3, consistent with prior ECG. No GOPAL/STD, good R wave progression. Non-ischemic ECG. 06/15/18 19:22 Patient reassessed @ bedside VS stable Comfortably sleeping, labs pending 06/15/18 19:27 Reactive leukocytosis (12.4) CBC, CMP otherwise unremarkable 06/15/18 20:11 Call received from U/S patient has twin gestation @ 15 weeks. 06/15/18 21:35 Resident Lou needlestick while attempting to draw Type and Screen. Patient orally consents to HIV and Hepatitis testing. 06/15/18 22:16 Urine Tox positive for PCP - patient remains hemodynamically stable, resting comfortably. Declines detox at this time. 06/15/18 22:44 HIV negative Hepatitis panel pending. 06/15/18 23:27 O positive - no need for Rhogam. Afebrile w/ other VS stable over a 4 hour period. Close monitoring with no seizure like activity or agitation observed. Patient remains A&O x3, ambulatory around unit, tolerating PO intake. Will discharge home with return precautions and instruction to see Dr. Clemons (who patient states has evaluated her on prior occasion) for further evaluation. Patient again declines transfer/referral to detox. *DC/Admit/Observation/Transfer Diagnosis at time of Disposition: PCP intoxication - Discharge Dispostion Disposition: HOME Condition at time of disposition: Good Decision to Admit order: No - Referrals Referrals: German Alvarado MD [Primary Care Provider] - Jeane Clemons MD [Staff Physician] - - Patient Instructions Printed Discharge Instructions: Managing Symptoms of Additional Instructions: Please make an appointment with Dr. Clemons in the next 2 days for further evaluation. Stop using drugs including PCP. Return to the Emergency Department for any new/worsening/concerning symptoms. - Post Discharge Activity
--- NOTE | 2018-06-15 18:54 | PDOC ---
Attending Attestation - Resident Resident Name: AlanaMaritza - ED Attending Attestation I have performed the following: I have examined & evaluated the patient, The case was reviewed & discussed with the resident, I agree w/resident's findings & plan, Exceptions are as noted - HPI HPI: 06/15/18 18:53 28 yo female BIBA for altered mental status . She was at [employer] and appeared lethagic pt admits to smoking "dust" and also states she has had care at [address] [place] [address] and is 20 weeks - Physicial Exam PE: 06/15/18 20:59 28 yo female with unsteady gait and 2rd trimester who was BIBA afterbeing found with altered mental status,admits to using PCP head ncat eyes eomi neck supple lungs no wheezing cvs [id number] abd protuberant,nontender ext no edema,no clubbing pelvic no vag bleeding neuro slurred speech,slow to respond to questioning but is able to ambulate w slightly unsteady gait,motor strength 5/5 b/l,no facial droop,no clonus, no drift skin warm and dry - Medical Decision Making 06/15/18 18:55 cbc,comp,IVF, imaging,drug testing 06/15/18 20:00 US: reveals twin gestation of 15 weeks 06/15/18 21:38 blood type o positive plan pt needs to follow up at [address] [place] [address] for care 06/15/18 23:26
[2018-06-15] MEDS ORDERED: SODIUM CHLORIDE 0.9% 500 ML INFUS.BAG IV ONE (18:58)
[2018-06-15 19:13] LABS: BASO % 0.2 % (0-2.0); EOS % 1.3 % (0-4.5); HEMATOCRIT 34.9 % (32.4-45.2); HEMOGLOBIN 11.7 GM/dL (10.7-15.3); LYMPH % 23.2 % (8-40); MCH 29.2 pg (25.7-33.7); MCHC 33.6 g/dl (32.0-36.0); MEAN CELL VOLUME 87.1 fl (80-96); MEAN PLT VOLUME 8.9 fl (7.5-11.1); MONO % 6.7 % (3.8-10.2); NEUT % 68.6 % (42.8-82.8); PLATELET COUNT 191 K/MM3 (134-434); RBC 4.01 M/mm3 (3.60-5.2); WHITE BLOOD COUNT 12.4 K/mm3 (4.0-10.0)
[2018-06-15 19:25] LABS: ALBUMIN 2.9 g/dl (3.4-5.0); ALK PHOS 51 U/L (45-117); ANION GAP 7 MMOL/L (8-16); BILIRUBIN,TOTAL 0.2 mg/dL (0.2-1); BLOOD UREA NITROGEN 7 mg/dL (7-18); CALCIUM 8.1 mg/dL (8.5-10.1); CHLORIDE 110 mmol/L (98-107); CO2 21 mmol/L (21-32); CREATININE 0.4 mg/dL (0.55-1.3); GLUCOSE,RANDOM 84 mg/dL (74-106); POTASSIUM 3.4 mmol/L (3.5-5.1); SGOT/AST 17 U/L (15-37); SGPT/ALT 21 U/L (13-61); SODIUM 138 mmol/L (136-145); TOT PROT 5.8 g/dl (6.4-8.2)
[2018-06-15 21:36] LABS: URINE APPEARANCE CLEAR; URINE BILIRUBIN NEGATIVE (<2.0 mg/dL); URINE COLOR YELLOW; URINE GLUCOSE (UA) NEGATIVE (NEGATIVE); URINE KETONE NEGATIVE (NEGATIVE); URINE LEUK ESTERASE NEGATIVE (NEGATIVE); URINE NITRITE NEGATIVE (NEGATIVE); URINE PROTEIN NEGATIVE (NEGATIVE)
[2018-06-15 21:54] LABS: COCAINE, UR NEGATIVE ng/ml (CUTOFF=300); METHADONE, UR NEGATIVE ng/ml (CUTOFF=300); OPIATES, URI NEGATIVE ng/ml (CUTOFF=300); URINE AMPHETAMINES NEGATIVE ng/ml (CUTOFF=500); URINE BARBITURATES NEGATIVE ng/ml (CUTOFF=200); URINE BENZODIAZEPINES NEGATIVE ng/ml (CUTOFF=200)
[2018-06-15 21:56] LABS: PHENCYCLIDINE,URINE POSITIVE ng/ml (CUTOFF=25)
[2018-06-15 23:56] VITALS: BP 98/65; PULSE 57; TEMP 98.3
--- NOTE | 2018-06-16 11:56 | EKG ---
Test Reason : Blood Pressure : / mmHG Vent. Rate : 067 BPM Atrial Rate : 067 BPM P-R Int : 154 ms QRS Dur : 080 ms QT Int : 408 ms P-R-T Axes : 048 090 015 degrees QTc Int : 431 ms NORMAL SINUS RHYTHM RIGHTWARD AXIS NONSPECIFIC T WAVE ABNORMALITY ABNORMAL ECG WHEN COMPARED WITH ECG OF 26-FEB-2018 11:34, NO SIGNIFICANT CHANGE WAS FOUND Confirmed by KELIN MOLINA, DANE ([id number]) on 06/16/2018 11:56:22 AM Referred By: Confirmed By:DANE NEVILLE MD
[2018-06-17 06:06] LABS: HEP.C VIRUS AB <0.1 s/co ratio (0.0-0.9)
== END 2018-06-16 00:19 | disposition home or self-care (01) ==
LOC: JER 18:29
DX: O26.891 Other specified pregnancy related conditions, first trimester (principal); O26.892 Other specified pregnancy related conditions, second trimester; F16.10 Hallucinogen abuse, uncomplicated; O30.002 Twin pregnancy, unspecified number of placenta and unspecified number of amniotic sacs, second trimester; Z3A.15 15 weeks gestation of pregnancy; Z86.19 Personal history of other infectious and parasitic diseases; Z87.09 Personal history of other diseases of the respiratory system
CPT/HCPCS: 36415; 76810-TC; 80053; 80074; 80307; 81003; 82962; 83605; 84702; 85025; 86850; 86900; 86901; 87086; 87389; 93005; 93010; 99284-25